=== PATIENT | female | born 1970 | race Two or more races ===

== ENCOUNTER → 2024-09-28 | Outpatient (CLI) | payer MEDICAID, SELFPAY ==
--- NOTE | 2024-09-28 14:00 | XR_ITS ---
Examination: Abdomen sonogram, complete Date and time of exam: September 28, 2024 1510 hours INDICATIONS: Abdominal pain beginning 2021. Technique: Multiple real-time grayscale transabdominal sonographic images of the abdomen have been obtained. Findings: Normal gallbladder Normal common bile duct 0.3 cm Pancreatic head 2.6 cm Aorta not enlarged. Liver 12.8 cm fatty infiltration Normal hepatopedal portal venous oh Patent IVC Right kidney 9.3 cm cortex 0.9 cm Left kidney 11.3 cm cortex 1.9 cm Spleen 10.1 cm IMPRESSION: Normal gallbladder Fatty liver
== END | disposition home or self-care (01) ==
LOC: CDIM 14:33
PROVIDERS: PCP Nurse Practitioner Family; Referring Provider Nurse Practitioner Family; Visit Provider Nurse Practitioner Family
DX: K76.0 Fatty (change of) liver, not elsewhere classified (principal)
CPT/HCPCS: 76700